=== PATIENT | female | born 1950 | race Caucasian/White ===

== ENCOUNTER 2016-08-04 08:47 | Emergency (ER) | payer OTHER ==
[~2016-08-04] VITALS: Ht 149.9 cm; Wt 65.1 kg
[~2016-08-04 08:47] MED LIST: ALAVERT10 MG PO; AMLODIPINE BESY10 MG PO; ASPIRIN81 M1 PO; BENADRYL50 MG PO; BISACODYL10 MG RC; CELEXA10 MG PO; CLONIDINE HCL0.1 MG PO; COLACE100 MG PO; CYTOTEC200 MCG PO; DAILY VITAMIN1 EAC2 PO; DAILY VITE1 EAC1 PO; IRON325 MG PO; LABETALOL HCL200 MG PO; LORATADINE10 M2 PO; LORAZEPAM0.5 MG PO; LORAZEPAM2 MG PO; LOVASTATIN40 MG PO; MIRALAX 527 GM527 GM PO; MIRALAX255 GM PO; PREPARATION H26 GM TP; PREVACID30 MG PO; PROZAC40 MG PO; PROzac PO; REGLAN5 MG PO; RISPERDAL2 MG PO; Reglan PO; SENNA8.6 MG PO; ST. JOSEPH ASPI81 MG PO; TEGRETOL XR100 MG PO; TEGRETOL100 MG PO; TYLENOL325 M1 PO; XYLOCAINE 2% PO; ZESTRIL,PRINIVI20 MG PO; ZESTRIL40 MG PO; ZYPREXA10 MG PO; ZyPREXA PO; [UNRECOGNIZED DRUG - OTHER]; [UNRECOGNIZED DRUG - OTHER]; [UNRECOGNIZED DRUG - OTHER] PO
[2016-08-04 10:55] VITALS: BP 119/69
== END 2016-08-04 10:56 | disposition home or self-care (01) ==
LOC: EME 08:47
DX: S01.111A Laceration without foreign body of right eyelid and periocular area, initial encounter (principal); G80.9 Cerebral palsy, unspecified; Z23 Encounter for immunization; Y29.XXXA Contact with blunt object, undetermined intent, initial encounter; Z91.5 Personal history of self-harm
CPT/HCPCS: 99281; 99284